=== PATIENT | female | born 1985 | race Caucasian/White ===

== ENCOUNTER 2020-03-09 11:26 | Emergency (ER) | payer OTHER, SELFPAY ==
[2020-03-09] MEDS ORDERED: Lidocaine 1% 20 ML MDV ONE (11:36)
[2020-03-09] MEDS ORDERED: Bacitracin 1 PK ONE (11:56)
[2020-03-09] MEDS ORDERED: Adacel (T-DAP) 0.5 ML SYRINGE ONE (11:56)
[2020-03-09] MEDS ORDERED: Cephalexin 500 MG CAP ONE (11:56)
[2020-03-09] MEDS ORDERED: HYDROcodone/Acetaminophen 5/325 mg Tablet ONE (12:03)
[2020-03-09] MEDS ORDERED: Ibuprofen 800 MG TAB ONE (12:09)
== END 2020-03-09 12:24 | disposition home or self-care (01) ==
LOC: MADERS 11:26
DX: S60.551A Superficial foreign body of right hand, initial encounter (principal); F41.9 Anxiety disorder, unspecified; Z23 Encounter for immunization; W45.8XXA Other foreign body or object entering through skin, initial encounter
CPT/HCPCS: 90471; 90715; 99282; J2001

== ENCOUNTER 2021-04-25 11:16 | Emergency (ER) | payer SELFPAY ==
[2021-04-25] MEDS ORDERED: Ibuprofen 800 MG TAB ONE (12:12)
[2021-04-25] MEDS ORDERED: Acetaminophen 500 MG TAB ONE (12:12)
== END 2021-04-25 13:20 | disposition home or self-care (01) ==
LOC: MADERS 11:16
DX: S90.32XA Contusion of left foot, initial encounter (principal); Y04.0XXA Assault by unarmed brawl or fight, initial encounter

== ENCOUNTER 2021-05-09 13:10 | Emergency (ER) | payer SELFPAY ==
[2021-05-09] MEDS ORDERED: Ibuprofen 800 MG TAB ONE (13:47)
[2021-05-10 22:47] LABS: SARS-CoV-2 PCR by NAA DETECTED (NotDetected)
== END 2021-05-09 14:15 | disposition home or self-care (01) ==
LOC: MADERS 13:10
DX: U07.1 COVID-19 (principal)
CPT/HCPCS: 99283; U0003; U0005

== ENCOUNTER 2022-06-28 11:21 | Emergency (ER) | payer SELFPAY | END 2022-06-28 12:48 | disposition home or self-care (01) | LOC: MADERS 11:21 | DX: U07.1 COVID-19 (principal); J06.9 Acute upper respiratory infection, unspecified | CPT/HCPCS: 71046; 87081; 87430; 87804; U0003; U0005 ==

== ENCOUNTER 2023-10-26 14:32 | Emergency (ER) | payer OTHER, SELFPAY ==
[2023-10-26] MEDS ORDERED: Azithromycin 250 MG TAB ONE (15:04)
[2023-10-26] MEDS ORDERED: Acetaminophen 500 MG TAB ONE (15:04)
== END 2023-10-26 15:12 | disposition home or self-care (01) ==
LOC: MADERS 14:32
DX: J02.0 Streptococcal pharyngitis (principal)
CPT/HCPCS: 87430; 99283

== ENCOUNTER 2024-02-02 11:08 | Emergency (ER) | payer OTHER | END 2024-02-02 12:40 | disposition home or self-care (01) | LOC: MADERS 11:08 | DX: O99.511 Diseases of the respiratory system complicating pregnancy, first trimester (principal); J06.9 Acute upper respiratory infection, unspecified; Z3A.10 10 weeks gestation of pregnancy | CPT/HCPCS: 87081; 87430; 87804; 99283 ==

== ENCOUNTER 2024-08-24 14:17 | Emergency (ER) | payer OTHER ==
[~2024-08-24 14:17] MED LIST: Iopamidol 370 76% 100 ML VIAL ONE; Sodium Chloride 0.9% 100 ML BAG ONE
[2024-08-24 15:08] LABS: Hematocrit 31.5 % (36.0-47.0); Hemoglobin 9.8 g/dL (12.0-16.0); Mean Corpuscular Hemoglobin 26.3 pg (27.0-31.0); Mean Corpuscular Volume 84.7 fl (78.0-98.0); Mean Platelet Volume 10.5 fL (7.4-10.4); Platelet Count 248 10x3/uL (130-400); RBC Distribution Width 13.7 % (11.5-14.5); Red Blood Cell (RBC) Count 3.72 mill/uL (4.20-5.40); White Blood Cell (WBC) Count 9.3 10x3/uL (4.8-10.8)
[2024-08-24 15:20] LABS: ALT (SGPT) 38 U/L (8-55); AST (SGOT) 39 U/L (5-34); Albumin 2.7 g/dL (3.5-5.0); Alkaline Phosphatase 102 U/L (40-110); Anion Gap 14 mmol/L (10-20); BUN (Urea Nitrogen) 10 mg/dL (7.0-18.7); Bilirubin, Total 0.2 mg/dL (0.2-1.2); Calc. Creatinine Clearance 0 mL/min (70-130); Calcium 8.3 mg/dL (7.8-10.44); Carbon Dioxide 21 mmol/L (22-29); Chloride 110 mmol/L (98-107); Estimated GFR 97; Globulin 2.5 g/dL (2.4-3.5); Glucose 94 mg/dL (70-105); Potassium 4.1 mmol/L (3.5-5.1); Protein, Total 5.2 g/dL (6.0-8.3); Sodium 141 mmol/L (136-145)
[2024-08-24 15:21] LABS: Troponin I 0.084 ng/mL (< 0.028)
[2024-08-24 15:27] LABS: Band 1 % (5-11); Eosinophils 2 % (0-10); Lymphocytes 19 % (21-51); MDiff Complete? YES; Monocytes 4 % (0-10); Neutrophil 73 % (42-75); Platelet Adequacy Comment Appears Adequate
[2024-08-24] MEDS ORDERED: Furosemide 40 MG (4 mL) VIAL ONE (15:54)
[2024-08-24 15:58] LABS: Bilirubin Negative (Negative); Blood, Urine Moderate (Negative); Clarity Clear (Clear); Glucose, Urine (Dipstick) Negative (Negative); Ketone, Urine Negative (Negative); Leukocyte Negative (Negative); Nitrite Negative (Negative); Protein, Urine (Dipstick) Negative (Neg-Trace); Urobilinogen 0.2 mg/dL (Less than 2)
[2024-08-24 16:05] LABS: Bacteria/HPF None Seen HPF (None Seen); CAUTI Indications for Culture Dysuria,urgency,freq; Squamous Epithelial 0-3 HPF (0-3); Urine Culture Reflex No No; WBC/HPF 0-3 HPF (0-3)
[2024-08-24] MEDS ORDERED: Carvedilol 6.25 MG TAB ONE (17:54)
[2024-08-24] MEDS ORDERED: Lisinopril 10 MG TAB ONE (17:54)
== END 2024-08-24 22:50 | disposition short-term general hospital (02) ==
LOC: MADERS 14:17
DX: O99.43 Diseases of the circulatory system complicating the puerperium (principal); O14.95 Unspecified pre-eclampsia, complicating the puerperium; I50.9 Heart failure, unspecified
CPT/HCPCS: 71275; 80053; 81001; 83880; 84484; 85025; 93005; 96374; J1940; Q9967

== ENCOUNTER 2025-04-05 21:54 | Emergency (ER) | payer MEDICAID, OTHER ==
[2025-04-05] MEDS ORDERED: Famotidine 20 MG TAB ONE (22:10)
[2025-04-05] MEDS ORDERED: predniSONE 20 MG TAB ONE (22:10)
[2025-04-05] MEDS ORDERED: diphenhydrAMINE 25 MG CAP ONE (22:10)
== END 2025-04-05 23:18 | disposition home or self-care (01) ==
LOC: MADERS 21:54
DX: T78.3XXA Angioneurotic edema, initial encounter (principal); I50.9 Heart failure, unspecified
CPT/HCPCS: 99284; J7512

== ENCOUNTER 2025-08-31 16:07 | Emergency (ER) | payer OTHER ==
[2025-08-31 17:10] LABS: Glucose, Urine (Dipstick) Negative (Negative); Leukocyte Negative (Negative); Protein, Urine (Dipstick) Negative (Neg-Trace); Specific Gravity, Urine 1.015 (1.005-1.030)
[2025-08-31 17:11] LABS: #Basophils 0.1 thou/uL (0.0-0.2); #Eosinophils 0.1 thou/uL (0.0-0.7); #Lymphocytes 2.7 thou/uL (1.20-3.40); #Monocytes 0.5 thou/uL (0.11-0.59); #Neutrophils 3.9 thou/uL (1.40-6.50); %Basophils 1.2 % (0.0-1.0); %Eosinophils 1.3 % (0.0-10.0); %Lymphocytes 37.5 % (21.0-51.0); %Monocytes 6.4 % (0.0-10.0); %Neutrophils 53.6 % (42.0-75.0); Hematocrit 40.5 % (36.0-47.0); Hemoglobin 13.3 g/dL (12.0-16.0); Mean Corpuscular Hemoglobin 31.5 pg (27.0-31.0); Mean Corpuscular Volume 96.2 fl (78.0-98.0); Platelet Count 249 10x3/uL (130-400); Red Blood Cell (RBC) Count 4.21 mill/uL (4.20-5.40); White Blood Cell (WBC) Count 7.3 10x3/uL (4.8-10.8)
[2025-08-31 17:12] LABS: Pregnancy Test - Urine (BHCG) Negative (Negative); Pregu Control Background? CLEAR/WHITE (CLR/WHITE); Pregu Control Bar Appear? YES (CONTROL BAR)
[2025-08-31] MEDS ORDERED: Ketorolac Tromethamine 30 MG (1 mL) VIAL ONE (17:15)
[2025-08-31 17:16] LABS: Bacteria/HPF Rare-Few HPF (None Seen); CAUTI Indications for Culture Pelvic or flank pain; RBC/HPF 0-3 HPF (0-3); Urine Culture Reflex No No; WBC/HPF 0-3 HPF (0-3)
[2025-08-31 17:27] LABS: ALT (SGPT) 21 U/L (Less than 34); AST (SGOT) 24 U/L (11-34); Albumin 4.3 g/dL (3.1-4.5); Alkaline Phosphatase 52 U/L (40-110); Anion Gap 15 mmol/L (10-20); BUN (Urea Nitrogen) 10 mg/dL (7.0-18.7); Bilirubin, Total 0.3 mg/dL (0.3-1.2); CK (CPK) 115 U/L (29-168); Calc. Creatinine Clearance 0 mL/min (70-130); Calcium 9.1 mg/dL (7.8-10.44); Carbon Dioxide 25 mmol/L (22-29); Chloride 105 mmol/L (98-107); Globulin 3.2 g/dL (2.4-3.5); Glucose 84 mg/dL (70-105); Potassium 4.1 mmol/L (3.5-5.1); Sodium 141 mmol/L (136-145)
== END 2025-08-31 18:30 | disposition home or self-care (01) ==
LOC: MADERS 16:07
DX: R10.A2 Flank pain, left side (principal); I50.9 Heart failure, unspecified
CPT/HCPCS: 36415; 74176; 80053; 81001; 81025; 82550; 85025; 96372; J1885; Q0162